=== PATIENT | female | born 1995 | race Caucasian/White ===

== ENCOUNTER 2021-10-04 04:36 | Inpatient (IN) | payer SELFPAY ==
[2021-10-04] MEDS ORDERED: OXYTOCIN DRIP 30,000 MILLIUNITS/500 ML BAG IV ONE (05:25)
[2021-10-04] MEDS ORDERED: LIDOCAINE (1%) 10 MG/1 ML VIAL 20 ML MDV INFILTRATI ONE (06:00)
[2021-10-04] MEDS ORDERED: ACETAMINOPHEN 325 MG TAB PO PRN ×2 (06:16→07:30)
[2021-10-04] MEDS ORDERED: BUTORPHANOL 2 MG/1 ML INJ IV PRN (06:16)
[2021-10-04] MEDS ORDERED: fentaNYL 100 MCG/2 ML INJ IV PRN (06:16)
--- NOTE | 2021-10-04 06:21 | History and Physical Report ---
History of Present Illness Date of examination: 10/04/21 Date of admission: 10/04/21 05:30 Chief complaint: Contractions and Leakage of Fluid History of present illness: 25 y/o at 40 weeks presents to OBT via EMS reporting CTX and LOF. There is VB. Good FM. In OBT, cervix was 9 cm dilated with bloody show. ROM Plus was obtained and sent. However, membranes were palpated to be intact thereafter. She is admitted to L&D in active labor. Past History Past Medical History: no pertinent history Past Surgical History: no surgical history Family/Genetic History: none Social history: no significant social history - Obstetrical History Expected Date of Delivery: 10/04/21 Actual Gestation: 40 Week(s) 0 Day(s) : 2 Para: 1 Hx # Term Pregnancies: 1 Medications and Allergies Allergies Allergy/AdvReac Type Severity Reaction Status Date / Time No Known Allergies Allergy Verified 10/04/21 06:15 Review of Systems All systems: negative - Vital Signs Vital signs: Vital Signs Pulse Pulse Ox 103 H 100 10/04/21 05:03 10/04/21 05:03 Temp Pulse Resp BP Pulse Ox 98.3 F 81 20 122/78 100 10/04/21 05:10 10/04/21 06:13 10/04/21 05:10 10/04/21 05:05 10/04/21 06:13 - Physical Exam Breasts: Positive: normal Cardiovascular: Regular rate Lungs: Positive: Normal air movement Abdomen: Positive: normal appearance Genitourinary (Female): Positive: normal external genitalia, normal perenium Vulva: both: normal Vagina: Positive: normal moisture Uterus: Positive: enlarged Adnexa: both: normal Anus/Rectum: Positive: normal perianal skin Deep Tendon Reflex Grade: Normal +2 - Obstetrical FHR: category 1 Uterine Contraction Monitor Mode: External Cervical Dilatation: 9 Cervical Effacement Percentage: 100 station: 0 Uterine Contraction Frequency (min): 5 Uterine Contraction Pattern: Regular Results All other labs normal. ROM Plus= pending Ultrasound: pending Assessment and Plan - Patient Problems (1) 40 weeks gestation of Current Visit: Yes Status: Acute Plan to address problem: care is up-to-date. GBS (-). (2) Postmaturity , 40-42 weeks gestation Current Visit: Yes Status: Acute Plan to address problem: Admit to L&D in active labor. (3) Active labor at term Current Visit: Yes Status: Acute Plan to address problem: Expectant management for now. Anticipate precipitous .
--- NOTE | 2021-10-04 06:23 | Procedure Note ---
OB Delivery Note - Delivery Date of Delivery: 10/04/21 Surgeon: PIOTR NARANJO Estimated blood loss: 300cc - Vaginal Delivery presentation: vertex Delivery position: OA Intrapartum events: precipitous labor- <3hr Delivery induction: none Delivery monitor: external FHT, external uterine Route of delivery: Delivery placenta: spontaneous Delivery cord: 3 umbilical vessels Episiotomy: none Delivery laceration: 1st degree, other (1st degree penineal, infra-clitoral, and lef margaret-urethral lacerations) Delivery repair: vicryl (3-0 Vicryl) Anesthesia: local - Infant A at 1 minute: 8 at 5 minutes: 9 Gender: Female
[2021-10-04] MEDS ORDERED: LACTATED RINGERS 1,000 ML IV SCH (06:30)
[2021-10-04] MEDS ORDERED: OXYTOCIN DRIP 30 UNITS/500 ML BAG IV SCH (07:00)
[2021-10-04] MEDS ORDERED: METHYLERGONOVINE MALEATE 0.2 MG/ML VIAL IM SCH (07:00)
[2021-10-04] MEDS ORDERED: diphenhydrAMINE 25 MG CAP PO PRN (07:30)
[2021-10-04] MEDS ORDERED: BENZOCAINE/MENTHOL 20/0.5% TOP SPRAY 56 GM TP PRN (07:30)
[2021-10-04] MEDS ORDERED: WITCH HAZEL/ GLYCERIN PAD TP PRN (07:30)
[2021-10-04] MEDS ORDERED: ONDANSETRON 4 MG/2 ML INJ IV PRN (07:30)
[2021-10-04] MEDS ORDERED: HYDROcodone/ACETAMINOPHEN 5-325 MG TAB PO PRN (07:30)
[2021-10-04] MEDS ORDERED: LANOLIN/ZINC/DIMETHICONE (LANSINOH) 7 GM TP PRN (07:30)
[2021-10-04] MEDS: IBUPROFEN 800 MG TAB PO SCH ×2 (07:39→18:44)
[2021-10-04 07:55] LABS: Hematocrit 29.3 % (30.3-42.9); Hemoglobin 9.6 gm/dl (10.1-14.3); Mean Corpuscular HGB Conc 33 % (30-34); Mean Corpuscular Volume 89 fl (79-97); Platelet Count 228 K/mm3 (140-440); Red Cell Distribution Width 14.5 % (13.2-15.2)
[2021-10-04] MEDS ORDERED: PRENATAL VIT27-FE FUMARATE-FOLIC ACID VIT TAB PO SCH (10:00)
[2021-10-04 19:06] LABS: Hematocrit 28.4 % (30.3-42.9); Hemoglobin 9.5 gm/dl (10.1-14.3)
[2021-10-04] MEDS ORDERED: MAGNESIUM HYDROXIDE (MOM) ORAL LIQD UDC PO PRN (22:00)
[2021-10-04] MEDS: DOCUSATE SODIUM 100 MG CAP PO SCH (22:00)
[2021-10-05] MEDS ORDERED: FERROUS SULFATE 300 MG (60MG Elemental Iron) / 5 mL ORAL LIQD PO SCH (10:00)
[2021-10-05] MEDS ORDERED: LACTATED RINGERS 500 ML IV SCH ×2 (10:15)
[2021-10-05] MEDS: DOCUSATE SODIUM 100 MG CAP PO SCH (10:42)
--- NOTE | 2021-10-05 12:02 | Progress Note ---
Assessment and Plan A: S/P Asymptomatic anemia Hypotension P: Fe prescribed IV LR bolus D/c home if stable per pt's request Dr Egan consulted - Patient Problems (1) (normal spontaneous vaginal delivery) Current Visit: Yes Status: Acute Subjective - Subjective Date of service: 10/05/21 Principal diagnosis: s/p Patient reports: appetite normal, voiding normally, dizzy ambulation, pain well controlled, ambulating normally : doing well, bottle feeding Objective - Vital Signs Latest vital signs: Vital Signs Temp Pulse Resp BP BP Pulse Ox Pulse Ox 10/05/21 08:38 98.0 F 91 H 18 86/57 100 10/05/21 00:51 98.2 F 20 107/67 10/04/21 21:00 99 10/04/21 18:40 99 10/04/21 16:15 99 10/04/21 16:00 98.2 F 107 H 20 108/45 100 10/04/21 12:00 99 Intake and Output 10/04/21 10/05/21 10/05/21 22:59 06:59 14:59 Intake Total 120 300 Output Total 0 700 Balance 120 -400 Intake: Oral 120 300 Output: Urine 0 700 Void 0 700 Other: Total, Intake Amount 120 300 Total, Output Amount 0 700 # Voids Void 1 - Exam Breasts: Present: normal Abdomen: Present: normal appearance, soft, normal bowel sounds Vulva: both: normal Uterus: Present: normal, firm, fundal height below umbilicus Extremities: Present: normal Incision: Present: normal, intact - Labs Labs: Abnormal lab results 10/04/21 Range/Units 17:51 Hgb 9.5 L (10.1-14.3) gm/dl Hct 28.4 L (30.3-42.9) %
--- NOTE | 2021-10-05 12:45 | Discharge Summary ---
Providers - Providers Date of Admission: 10/04/21 05:30 Date of discharge: 10/05/21 Attending physician: SAM STOLL 10/05/21 07:39 Consult to Case Management [CONS] Routine Services Needed at Discharge: Other Notified:: will call 10/05/21 Primary care physician: SAM STOLL Hospitalization Reason for admission: active labor, IUP at term Delivery: Episiotomy: none Laceration: 1st degree Incision: normal, intact Other procedures: none complications: none Discharge diagnosis: IUP at term delivered [place] baby: female Hospital course: Pt was admitted to [facility] in active labor. She had a w/o pp complications. See H&P, delivery summary, and pp notes. Condition at discharge: Stable Disposition: 01 HOME / SELF CARE / HOMELESS - Discharge Diagnoses (1) (normal spontaneous vaginal delivery) Status: Acute Plan - Discharge Medications Prescriptions: Ferrous Sulfate [Iron 325 MG] 325 mg PO QDAY #90 Ibuprofen [Motrin 800 MG tab] 800 mg PO Q6H PRN #30 tablet PRN Reason: Pain, Mild (1-3) - Provider Discharge Summary Activity: routine, no sex for 6 weeks, no heavy lifting 4 weeks, no strenuous exercise Diet: other (Fe rich diet) Instructions: routine Additional instructions: [] Smoking cessation referral if applicable(refer to patient education folder for contact #) [] Refer to [facility] Booklet Call your doctor immediately for: * Fever > 100.5 * Heavy vaginal bleeding ( >1 pad per hour) * Severe persistent headache * Shortness of breath * Reddened, hot, painful area to leg or breast * Drainage or odor from incision. * Keep incision clean and dry at all times and follow doctor's instructions regarding bathing/showering - Follow up plan Follow up: SAM STOLL MD [Primary Care Provider] - 6 Weeks
[2021-10-05 17:45] VITALS: BP 95/57
== END 2021-10-05 18:30 | disposition home or self-care (01) | DRG 807 ==
LOC: TRG 04:36 → APU 04:41 → LD 05:30 → TRG 05:30 → OB 08:30
PROVIDERS: ADMIT Obstetrics & Gynecology; ATTEND Obstetrics & Gynecology
PROC: 10E0XZZ Delivery of Products of Conception, External Approach (ICD-10-PCS; principal; 2021-10-04)
PROC: 0HQ9XZZ Repair Perineum Skin, External Approach (ICD-10-PCS; 2021-10-04)
DX: O48.0 Post-term pregnancy (principal); Z37.0 Single live birth; Z3A.40 40 weeks gestation of pregnancy; O62.3 Precipitate labor; O70.0 First degree perineal laceration during delivery; O90.81 Anemia of the puerperium; O26.53 Maternal hypotension syndrome, third trimester
CPT/HCPCS: 36415; 84112; 85014; 85018; 85027; 86850; 86900; 86901; G0378; J2210; J2590; J7120; U0003